=== PATIENT | female | born 1945 | race Two or more races ===

== ENCOUNTER 2020-01-17 10:21 | Emergency (ER) | payer OTHER ==
[~2020-01-17] VITALS: Ht 160 cm; Wt 84.4 kg
[2020-01-17] MEDS ORDERED: SYNTHROID125 MCG (10:37)
[2020-01-17] MEDS ORDERED: METFORMIN HCL1000 M2 PO (10:37)
[2020-01-17] MEDS ORDERED: ENALAPRIL MALEA10 MG (10:37)
== END 2020-01-17 11:57 | disposition home or self-care (01) ==
LOC: ER 10:21
DX: L72.0 Epidermal cyst (principal)